=== PATIENT | female | born 1980 | race Two or more races ===

== ENCOUNTER 2024-06-17 12:50 | Outpatient (RCR) | payer MEDICAID, SELFPAY ==
--- NOTE | 2024-05-13 16:34 | XR_ITS ---
Examination: Biophysical profile, ultrasound Date and time of exam: May 13, 2024 1651 hours INDICATIONS: Diagnosis advanced maternal age Technique: Multiple transabdominal sonographic images of the pelvis abdomen obtained. Attention is directed to the breathing movement, gross body movement, amniotic fluid volume and tone. Findings: Amniotic fluid index 6.0 cm Total biophysical profile is 8 of 8. breathing movement is 2. Gross body movement is 2. tone is 2. Qualitative amniotic fluid volume is 2 Impression: Biophysical profile is 8 of 8.
[2024-05-13 17:15] VITALS: BP 106/53; PULSE 64; RESP 16; TEMP 36.8
--- NOTE | 2024-05-20 13:07 | XR_ITS ---
Examination: Biophysical profile, ultrasound Date and time of exam: May 20, 2024, 1325 hrs. Indications: Diagnosis advanced maternal age Technique: Multiple transabdominal sonographic images of the pelvis abdomen obtained. Attention is directed to the breathing movement, gross body movement, amniotic fluid volume and tone. Findings: Amniotic fluid index 8.4 cm Total biophysical profile is 8 of 8. breathing movement is 2. Gross body movement is 2. tone is 2. Qualitative amniotic fluid volume is 2 Impression: Biophysical profile is 8 of 8.
[2024-05-20 13:51] VITALS: BP 112/54; PULSE 75; RESP 16; TEMP 36.7
--- NOTE | 2024-05-27 16:03 | XR_ITS ---
Examination: Biophysical profile, ultrasound Date and time of exam: May 27, 2024 at 1608 hours INDICATIONS: Diagnosis advanced maternal age Technique: Multiple transabdominal sonographic images of the pelvis abdomen obtained. Attention is directed to the breathing movement, gross body movement, amniotic fluid volume and tone. Findings: Amniotic fluid index 8.9 cm Total biophysical profile is 8 of 8. breathing movement is 2. Gross body movement is 2. tone is 2. Qualitative amniotic fluid volume is 2 Impression: Biophysical profile is 8 of 8.
[2024-05-27 16:33] VITALS: BP 113/57; PULSE 64; RESP 16; TEMP 36.5
--- NOTE | 2024-06-03 13:01 | XR_ITS ---
Examination: Biophysical profile, ultrasound Date and time of exam: June 03, 2024 1321 hours INDICATIONS: Diagnosis advanced maternal age Technique: Multiple transabdominal sonographic images of the pelvis abdomen obtained. Attention is directed to the breathing movement, gross body movement, amniotic fluid volume and tone. Findings: Amniotic fluid index 6.5 cm Total biophysical profile is 8 of 8. breathing movement is 2. Gross body movement is 2. tone is 2. Qualitative amniotic fluid volume is 2 Impression: Biophysical profile is 8 of 8.
[2024-06-03 14:15] VITALS: BP 112/54; PULSE 66; RESP 17; TEMP 36.4
--- NOTE | 2024-06-10 13:23 | XR_ITS ---
Examination: Biophysical profile, ultrasound Date and time of exam: June 10, 2024 1402 hours INDICATIONS: Diagnosis advanced maternal age Technique: Multiple transabdominal sonographic images of the pelvis abdomen obtained. Attention is directed to the breathing movement, gross body movement, amniotic fluid volume and tone. Findings: Amniotic fluid index 10.7 cm Total biophysical profile is 8 of 8. breathing movement is 2. Gross body movement is 2. tone is 2. Qualitative amniotic fluid volume is 2 Impression: Biophysical profile is 8 of 8.
[2024-06-10 14:47] VITALS: BP 108/54; PULSE 65; RESP 19; TEMP 36.6
--- NOTE | 2024-06-17 12:55 | XR_ITS ---
Examination: Biophysical profile, ultrasound Date and time of exam: June 17, 2024 1305 hrs. Indications: Diagnosis advanced maternal age Technique: Multiple transabdominal sonographic images of the pelvis abdomen obtained. Attention is directed to the breathing movement, gross body movement, amniotic fluid volume and tone. Findings: Amniotic fluid index 7.2 cm Total biophysical profile is 8 of 8. breathing movement is 2. Gross body movement is 2. tone is 2. Qualitative amniotic fluid volume is 2 Impression: Biophysical profile is 8 of 8.
[2024-06-17 13:24] VITALS: BP 121/64; PULSE 67; RESP 18; TEMP 36.6
== END 2024-06-17 23:59 | disposition home or self-care (01) ==
LOC: S4S1 12:50
PROVIDERS: PCP Nurse Practitioner Family; Referring Provider Student in an Organized Health Care Education/Training Program; Visit Provider Student in an Organized Health Care Education/Training Program
DX: O09.523 Supervision of elderly multigravida, third trimester (principal); Z3A.38 38 weeks gestation of pregnancy
CPT/HCPCS: 59025; 76819